=== PATIENT | female | born 1950 | race Caucasian/White ===

== ENCOUNTER 2017-03-26 08:44 | Day surgery (SDC) | payer OTHER ==
[~2017-03-26 08:44] MED LIST: EFFEXOR XR75 MG; LIPITOR20 MG
== END 2017-03-26 13:30 | disposition home or self-care (01) ==
LOC: AMB-ENDOS 08:44
DX: K57.32 Diverticulitis of large intestine without perforation or abscess without bleeding (principal); K64.1 Second degree hemorrhoids; Z12.11 Encounter for screening for malignant neoplasm of colon

== ENCOUNTER 2017-10-28 15:53 | Day surgery (SDC) | payer OTHER ==
[~2017-10-28] VITALS: Ht 121.9 cm; Wt 5.0 kg
[2017-10-28] MEDS ORDERED: NORVASC2.5 MG (16:02)
[2017-10-28] MEDS ORDERED: FLAX OIL1000 MG (16:03)
== END 2017-10-29 09:00 | disposition home or self-care (01) ==
LOC: ER 15:53 → CIR.AMB 17:00 → ER 19:34 → SURH 19:34 → ER 19:37 → O/R 19:37 → CIR.AMB 10-29 09:00 → O/R 10-29 21:20 → SURH 10-29 21:20
DX: K57.31 Diverticulosis of large intestine without perforation or abscess with bleeding (principal); K64.1 Second degree hemorrhoids